=== PATIENT | male | born 1990 | race Caucasian/White ===

== ENCOUNTER 2019-03-19 11:53 | Emergency (ER) | payer OTHER ==
[~2019-03-19] VITALS: Ht 180.3 cm; Wt 83.5 kg
--- NOTE | 2019-03-19 12:02 | NUR ---
PATIENT AMBULATED TO BED 6 AT THIS TIME.
[2019-03-19 12:05] VITALS: BP 143/81
--- NOTE | 2019-03-19 12:15 | NUR ---
PT BIB FRIEND C/O RT ELBOW DISLOCATION S/P PLAYING SOCCER 30 MIN. AGO PT REPORTS NON-RADIATING, SHARP PAIN IN RT ELBOW AT 8/10, AND NUMBNESS IN FOREARM. RADIAL PULSE 2+ DISTAL TO INJURY, CAP REFIL <3 SEC, UNABLE TO MOVE ARM. VSS. ER MD TO SEE PT. MEDHX:DENIES RX:DENIES
[2019-03-19] MEDS ORDERED: NACL 0.9% 1,000 ML IV ONE (12:32)
[2019-03-19] MEDS ORDERED: NACL 0.9% 1,000 ML IV SCH (12:32)
[2019-03-19] MEDS ORDERED: ONDANSETRON 4 MG/2 ML VIAL IVP ONE (12:35)
[2019-03-19] MEDS ORDERED: MORPHINE SULFATE 4 MG/ML SYR IVP ONE (12:35)
[2019-03-19] MEDS ORDERED: KETOROLAC 30 MG/ML VIAL IVP ONE (12:35)
[2019-03-19] MEDS ORDERED: ETOMIDATE 20 MG/10 ML VIAL IVP ONE (12:35)
--- NOTE | 2019-03-19 13:00 | NUR ---
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
[2019-03-19 15:00] VITALS: BP 129/79
--- NOTE | 2019-03-19 15:00 | NUR ---
Patient discharged with v/s stable. Written and verbal after care instructions given and explained. Patient alert, oriented and verbalized understanding of instructions. Ambulatory with steady gait. All questions addressed prior to discharge. ID band removed. Patient advised to follow up with PMD. Rx of motrin 800 given. Patient educated on indication of medication including possible reaction and side effects. Opportunity to ask questions provided and answered.
== END 2019-03-19 15:00 | disposition home or self-care (01) ==
LOC: MED 11:53
DX: S53.194A Other dislocation of right ulnohumeral joint, initial encounter (principal); W19.XXXA Unspecified fall, initial encounter; Y93.66 Activity, soccer; Y92.89 Other specified places as the place of occurrence of the external cause; Y99.8 Other external cause status
CPT/HCPCS: 24600; 73080; 96374; 96375; 99152; 99285; G0500; J1885; J2270; J2405; J3490; J7030